=== PATIENT | male | born 1975 | race Caucasian/White ===

== ENCOUNTER 2021-03-14 05:10 | Emergency (ER) | payer BC ==
[2021-03-14 06:05] VITALS: BP 149/107; PULSE 73
--- NOTE | 2021-03-14 08:49 | EDM.PDOC ---
ED HPI GENERAL MEDICAL PROBLEM - General Chief Complaint: ENT Problem Stated Complaint: TOOTH PAIN Time Seen by Provider: 03/14/21 08:27 Source of Information: Reports: Patient History Limitations: Reports: No Limitations - History of Present Illness INITIAL COMMENTS - FREE TEXT/NARRATIVE: The patient presents with right lower jaw dental pain. This started a few weeks go and was seen by his dentist. He filled a cavity and that did help until a few days ago. He now has severe pain. His dentist was out so he saw a different dentist and he put the patient on amoxicillin but nothing for pain. The patient has severe pain now and he was up last night. Onset: Gradual Duration: Week(s): Location: Reports: Other (mouth) Quality: Reports: Sharp Severity: Severe Improves with: Reports: None Worsens with: Reports: None Associated Symptoms: Reports: No Other Symptoms Right Face/Facial Pain Score (Numeric/FACES): 10 - Related Data Allergies Allergy/AdvReac Type Severity Reaction Status Date / Time No Known Allergies Allergy Verified 02/26/15 16:55 Home Meds: Home Meds LORazepam [Ativan] 1 mg PO ASDIRECTED PRN #25 tablet 02/26/15 [Rx] Lisinopril 20 mg PO DAILY #30 tablet 02/26/15 [Rx] Past Medical History - Past Health History Medical/Surgical History: Denies Medical/Surgical History Social & Family History - Tobacco Use Tobacco Use Status *Q: Never Tobacco User - Recreational Drug Use Recreational Drug Use: No - Living Situation & Occupation Occupation: Unemployed ED ROS ENT - Review of Systems Review Of Systems: See Below Constitutional: Reports: No Symptoms HEENT: Reports: Dental Pain Respiratory: Reports: No Symptoms Cardiovascular: Reports: No Symptoms Endocrine: Reports: No Symptoms GI/Abdominal: Reports: No Symptoms : Reports: No Symptoms ED EXAM, ENT - Physical Exam Exam: See Below Exam Limited By: No Limitations General Appearance: Alert, No Apparent Distress Ears: Normal External Exam Nose: Normal Inspection Mouth/Throat: Other (Pain upon palpation to the right lower jaw near a premolar with edema and erythema.) Course - Vital Signs Last Recorded V/S: Last Vital Signs Temp 97.5 F 03/14/21 06:01 Pulse 73 03/14/21 06:01 Resp 18 03/14/21 06:01 BP 149/107 H 03/14/21 06:01 Pulse Ox 95 03/14/21 06:01 - Re-Assessments/Exams Free Text/Narrative Re-Assessment/Exam: 03/14/21 08:48 I used some topical numbing medication at the area of the right inferior alveolar nerve. I then used 1.8mls of 0.5% bupivicaine to do a right inferior alveolar nerve block. The patient did have some relief of pain. I did give him 2 hydrocodone here and a prescription for more. Departure - Departure Time of Disposition: 08:50 Disposition: Home, Self-Care 01 Condition: Good Clinical Impression: Dental abscess, Pain, dental - Discharge Information *PRESCRIPTION DRUG MONITORING PROGRAM REVIEWED*: Not Applicable *COPY OF PRESCRIPTION DRUG MONITORING REPORT IN PATIENT TERRENCE: Not Applicable Referrals: Landon Freedman MD [Primary Care Provider] - Additional Instructions: Take the amoxicillin as prescribed. Take tylenol or motrin for pain. If that does not work try the hydrocodone. Do not drive while taking the hydrocodone. Follow up with your dentist. Please return if you are worse. Sepsis Event Note (ED) - Evaluation Sepsis Screening Result: No Definite Risk - Focused Exam Vital Signs: Vital Signs Temp Pulse Resp BP Pulse Ox 03/14/21 06:01 97.5 F 73 18 149/107 H 95
== END 2021-03-14 07:40 | disposition home or self-care (01) ==
LOC: JD.ED 05:10
DX: K04.7 Periapical abscess without sinus (principal); Z79.899 Other long term (current) drug therapy
CPT/HCPCS: 64400; 99282; 99282-25